=== PATIENT | male | born 1980 | race Caucasian/White ===

== ENCOUNTER 2019-03-29 00:35 | Emergency (ER) | payer SELFPAY ==
[~2019-03-29] VITALS: Ht 167.6 cm; Wt 68.0 kg
--- NOTE | 2019-03-29 00:40 | NUR ---
ED Nurse Note: Patient michelle RA [address] being found running around and disrupting traffic, patient is aphasic and not being able to make sense however patient follows directions, complains of no pain at this time. patient's skin is warm to touch and has a disheveled appearance. states that he has no recollection of memories prior to coming to the emergency room. patient has no suicidal ideation nor does he have intent to harm others. will wait for further orders
[2019-03-29 00:45] VITALS: BP 160/110
[2019-03-29] MEDS ORDERED: DiphenhydrAMINE 50mg/ml Inj IM ONE (01:00)
[2019-03-29] MEDS ORDERED: Haloperidol 5mg/ml Inj IM ONE (01:00)
--- NOTE | 2019-03-29 01:04 | Emergency Room Report ---
History of Present Illness General Chief Complaint: Behavioral Complaint Source: EMS Present Illness HPI This is a 39-year-old male with probable psychiatric history with schizophrenia. He presents with chief complaint of behavioral disorder. He was running in the street and bystander called 911. He was brought in by EMS. Patient has been talking nonstop. He appeared to been had a recent hospital with previous IV stick gt on his arms and take part on his arm. Patient denies suicidal thoughts or homicidal thought. Unknown alcohol or drug abuse. Allergies: Coded Allergies: UNABLE TO ASSESS (Unverified , 03/29/19) Patient History Past Medical History: see triage record, old chart reviewed, unable to obtain Past Surgical History: unable to obtain Family History: unable to obtain Social History: single Immunizations: other Reviewed Nursing Documentation: PMH: Agreed; PSxH: Agreed Nursing Documentation-PMH Past Medical History: Deferred Review of Systems ENT: Denies: sore throat Cardiovascular: Denies: chest pain, palpitations Gastrointestinal/Abdominal: Denies: nausea, vomiting, diarrhea Musculoskeletal: Denies: back problems Skin: Denies: rash Neurological: Denies: GUNDERSON, seizures All Other Systems: negative except mentioned in HPI Physical Exam Vital Signs Date Time Temp Pulse Resp B/P (MAP) Pulse Ox O2 Delivery O2 Flow Rate FiO2 03/29/19 00:33 100.2 78 20 160/110 (127) 99 Room Air Vitals with elevated BP Sp02 EP Interpretation: reviewed, normal General Appearance: alert/responsive, no apparent distress, non-toxic Head: normocephalic, atraumatic Eyes: PERRL, EOMI ENT: oropharynx normal Neck: supple/symm/no masses Respiratory: effort normal, no rhonchi, no wheezing Cardiovascular: no murmur, gallop, rub Gastrointestinal: non-tender, no mass, non-distended, no rebound/guarding, normal bowel sounds Musculoskeletal: gait & station normal Neurologic: oriented x3, sensory intact, motor strength/tone normal Psychiatric: other - Patient appeared to be responding to external stimuli. He has tangential thoughts and hallucination. Skin: no rash, normal palpation Medical Decision Making Diagnostic Impression: Primary Impression: Psychosis Qualified Codes: F23 - Brief psychotic disorder Additional Impression: Methamphetamine abuse ER Course Patient with history of schizophrenia and not taken his medication. Exacerbated by drug abuse. After Haldol and Benadryl, he is calm and sleeping comfortably. No suicidal thoughts homicidal thought. No criteria for 5150. He is calm now and back to baseline. Will discharge home with prescription for Zyprexa. This patient is a chronic risk of self injury due to poor impulse control, limited coping skills, and judgment intermittently impaired by intoxication. I believe that the available clinical evidence to suggest that these characteristics derived primarily from personality disorder and are likely very stable over time. Hospitalization would likely attenuate risk of self-harm only during [facility] period, without lasting risk reduction. Serious self-harm , while possible, would likely be inadvertent, and because of impulsivity, and foreseeable. For these reasons, I do not believe hospitalization would provide meaningful reduction in risk of self-harm. Last Vital Signs Date Time Temp Pulse Resp B/P (MAP) Pulse Ox O2 Delivery O2 Flow Rate FiO2 03/29/19 00:33 100.2 78 20 160/110 (127) 99 Room Air Status: improved Disposition: HOME, SELF-CARE Condition: Stable Scripts Olanzapine* (ZYPREXA*) 10 Mg Tablet 10 MG ORAL DAILY, #30 TAB 0 Refills Prov: Frederick Damon MD 03/29/19 Patient Instructions: Self-Destructive Behavior Additional Instructions: Stop using drugs. Follow-up with mental health in a week. Return if worse. Frederick Damon MD Mar 29, 2019 01:04
--- NOTE | 2019-03-29 02:26 | NUR ---
ED Nurse Note: Urine sent down, patient complains of no distress at this time
--- NOTE | 2019-03-29 03:18 | NUR ---
HAND-OFF: Report given to JIGNA Everett.
--- NOTE | 2019-03-29 03:20 | NUR ---
ED Nurse Note: Pt is resting in bed and cooperative, pt is shows no acute signs of distress. pt bed placed at lowest position x 2 siderails. pt given blanket. pt vss.
[2019-03-29] MEDS ORDERED: ZYPREXA10 MG ORAL (03:25)
[2019-03-29 03:28] VITALS: BP 157/94
[2019-03-29 04:57] VITALS: BP 155/100
--- NOTE | 2019-03-29 05:10 | NUR ---
ER DISCHARGE NOTE: Patient is cleared to be discharged per ERMD, pt is aox4, on room air, with stable vital signs. pt was given dc and prescription instructions, pt was able to verbalize understanding, pt id band removed. pt is able to ambulate with steady gait. pt took all belongings.
[2019-03-29 05:25] VITALS: BP 145/89
== END 2019-03-29 05:10 | disposition home or self-care (01) ==
LOC: EDBD 00:35 → EMR 03:09
DX: F23 Brief psychotic disorder (principal); F15.10 Other stimulant abuse, uncomplicated
CPT/HCPCS: 80307; 96372; 99283; J1200; J1630